=== PATIENT | female | born 1935 | race Caucasian/White ===

== ENCOUNTER → 2021-07-01 11:11 | Outpatient (CLI) | payer OTHER, SELFPAY ==
--- NOTE | 2021-07-01 | DI.MG.S_ITS ---
BILATERAL DIGITAL SCREENING MAMMOGRAM 3D/2D WITH CAD: 07/01/2021 CLINICAL: Routine screening. Family history of breast cancer. Comparison is made to exams dated: 05/11/2020 mammogram, 03/20/2019 mammogram, 03/19/2017 mammogram, and 03/19/2018 mammogram - Merged with [facility]. There are scattered fibroglandular elements in both breasts. Current study was also evaluated with a Computer Aided Detection (CAD) system. There are benign calcifications in both breasts. No significant masses, calcifications, or other findings are seen in either breast. There has been no significant interval change. IMPRESSION: BENIGN There is no mammographic evidence of malignancy. A 1 year screening mammogram is recommended. This exam was interpreted at Station ID: [id number]. NOTE: For mammograms, a report in lay terms will be sent to the patient. Approximately 15% of breast malignancies will not be visualized mammographically. In the management of a palpable breast mass, a negative mammogram must not discourage biopsy of a clinically suspicious lesion. Electronically Signed By: Kash Loomis M.D., jr/lesly:07/04/2021 09:16:46 letter sent: Normal Exam ACR BI-RADS Category 2: Benign Finding(s) 3342F
== END ==
PROVIDERS: PCP Internal Medicine; Referring Provider Internal Medicine; Visit Provider Internal Medicine
DX: Z12.31 Encounter for screening mammogram for malignant neoplasm of breast (principal); Z80.3 Family history of malignant neoplasm of breast
CPT/HCPCS: 77063; 77067

== ENCOUNTER 2022-02-03 10:34 | Emergency (ER) | payer OTHER, SELFPAY ==
[2022-02-03] VITALS (9 sets, daily range): BP systolic 154–198; BP diastolic 67–78; PULSE 63–89; RESP 15–16; TEMP 36.6–36.9; O2SAT 99–100; BMI 28.3
--- NOTE | 2022-02-03 12:02 | DI.RAD.S_ITS ---
PROCEDURE: XR CHEST 1V INDICATIONS: chest pain TECHNIQUE: One view of the chest was acquired. COMPARISON: None. FINDINGS: Surgical changes and devices: None. Lungs and pleura: Trace blunting of the left costophrenic angle may represent a trace pleural effusion or chronic pleural thickening. Lungs are otherwise clear. No pneumothorax. Mediastinum: Mediastinal contours appear normal. Heart size is normal. Mild aortic atherosclerotic calcifications. Bones and chest wall: No suspicious bony lesions. Overlying soft tissues appear unremarkable. IMPRESSION: Trace left pleural effusion or pleural thickening. Lungs are otherwise clear. Approved by: Vinny Her M.D. on 02/03/2022 at 12:51
--- NOTE | 2022-02-03 12:48 | PC.NURSE ---
Addendum entered by Padmini Fernando R.N. 02/03/22 12:50: equal second rigger and + CMS Original Note: pt with h/o TIA on eliquis c/o numbness and tingling in the RUE that happens when she holds her phone too long. states she has been having neck pain which she is unsure is related.
[2022-02-03 12:58] LABS: Add Manual Diff / Slide Review NO; Basophils Absolute Auto 100 /uL (0-100); Basophils Percent Auto 1.3 % (0-2); Eosinophils Absolute Auto 0 /uL (0-450); Eosinophils Percent Auto 0.9 % (2-4); Hematocrit 25.1 % (36-46); Hemoglobin 7.2 g/dL (12.0-16.0); Lymphocytes Absolute Auto 700 /uL (1100-4500); Lymphocytes Percent Auto 14.1 % (25-40); Mean Corpuscular HGB Conc 28.5 % (30-36); Mean Corpuscular Hemoglobin 16.2 PG (26-34); Mean Corpuscular Volume 56.9 fL (80-100); Monocytes Absolute Auto 600 /uL (0-900); Monocytes Percent Auto 11.2 % (3-14); Neutrophils Absolute Auto 3600 /uL (1500-7000); Neutrophils Percent Auto 72.5 % (50-75); Platelet Count 289 X10^3/uL (150-400); Red Blood Cell Count 4.42 X10^6/uL (4.0-5.2); Red Cell Distribution Width 20.7 % (11.6-14.8); White Blood Cell Count 4.9 X10^3/uL (4.5-11.0)
[2022-02-03 13:06] LABS: Alanine Aminotransferase 14 IU/L (<35); Albumin Globulin Ratio 1.4 (1.0-2.8); Alkaline Phosphatase 75 U/L (38-126); Aspartate Aminotransferase 16 IU/L (14-36); BUN Creatinine Ratio 15.9 (6-22); Bilirubin Total 0.4 mg/dL (0.2-1.3); Blood Urea Nitrogen 11 mg/dL (7-17); Calcium 8.7 mg/dL (8.4-10.2); Carbon Dioxide 26 mmol/L (22-32); Chloride 104 mmol/L (98-107); Creatine Kinase 32 U/L (30-135); Estimated Glomerular Filt Rate > 60 mL/min (>60); Globulin 2.9 g/dL (1.7-4.1); Glucose 97 mg/dL (80-110); HEMOLYSIS < 15 (0-50); Lipase 39 U/L (23-300); Potassium 4.1 mmol/L (3.4-5.1); Sodium 138 mmol/L (137-145); Total Protein 6.9 g/dL (6.3-8.2)
[2022-02-03 13:17] LABS: Troponin I < 0.012 ng/mL (0.01-0.034)
[2022-02-03 13:35] LABS: Anisocytosis 3+; Microcytosis 3+
[2022-02-03 13:36] LABS: Hypochromasia 3+; Ovalocytes 1+
--- NOTE | 2022-02-03 13:37 | ED_ITS ---
HPI - Extremity Problem General Chief complaint: Extremity Problem,Nontraumatic Stated complaint: RIGHT ARM NUMBNESS Time Seen by Provider: 02/03/22 12:02 Source: patient Mode of arrival: Ambulatory History of Present Illness HPI Narrative: Patient is 86-year-old female history of hypertension atrial fibrillation on anticoagulation presenting today with ongoing right-sided arm numbness. She says it has been going on for about 1-2 months as it is definitely positional. She says she wakes up in the middle the night she feels like her arm is numb she changes the position it gets better. Throughout the day it is actually okay sometime she still has numbness in her right fingertips. She is not weak or dropping things. When she holds the phone up to her your her arm also goes numb. She denies any headache chest pain shortness of breath fever chills or any other symptoms. She currently is not having any significant numbness. Related Data Previous Rx's Medication Instructions Recorded gabapentin 300 mg capsule 300 mg PO BEDTIME #30 caps 02/03/22 Allergies Allergy/AdvReac Type Severity Reaction Status Date / Time Penicillins Allergy Verified 02/03/22 10:39 Review of Systems Review of Systems Narrative: GENERAL: Denies chills, fatigue, malaise, fever, sweats, travel HEENT: Denies sinus pain, ear pain, sore throat, difficulty swallowing, neck pain RESPIRATORY: Denies dyspnea, cough, wheezing, hemoptysis, sputum. CARDIOVASCULAR: Denies chest pain, palpitations, orthopnea, edema GASTROINTESTINAL: Denies nausea, vomiting, abdominal pain, diarrhea, constipation, melena. : Denies dysuria, frequency, incontinence, hematuria, urinary retention, flank pain. MUSCULOSKELETAL: Denies weakness, joint pain, or bony pain SKIN: No rash, no erythema, no pruritus NEUROLOGIC: See HPI PSYCHIATRIC: No concerning psychosocial issues. 12 point review of systems is negative except for those stated above and HPI Patient History Social History Smoking Status: Unknown if ever smoked Smoking Status: Unknown if ever smoked alcohol intake frequency: holidays/special occasions only Substance Use Type: does not use Exam Initial Vital Signs Initial Vital Signs: Vital Signs Temperature 97.9 F 02/03/22 10:39 Pulse Rate 89 02/03/22 10:39 Respiratory Rate 15 02/03/22 10:39 Blood Pressure 198/77 H 02/03/22 10:39 Pulse Oximetry 100 02/03/22 10:39 Oxygen Delivery Method 02/03/22 10:39 GENERAL: Alert pleasant 86-year-old female and in no acute distress. HEENT: Head atraumatic,EOMI, pupils reactive, face symmetric, moist mucous membranes CARDIOVASCULAR: Regular rate and rhythm without murmurs, rubs or gallops. RESPIRATORY: Breath sounds equal bilaterally, no wheezes rales or rhonchi. ABDOMEN: Soft, nontender. Normoactive bowel sounds all 4 quadrants. No guarding or rebound. EXTREMITIES: Normal range of motion, no clubbing or edema. Neurovascularly intact NEUROLOGICAL: Alert and oriented x4.Normal gait and speech. Cranial nerves II through XII grossly intact. Good fhdybz-my-tupu, good vcfj-wy-oyub, strength equal bilaterally, no dysarthria or aphasia, sensation in tact to soft touch bilaterally, no visual changes, no facial droop SKIN: Warm, dry, no laceration, no petechiae, no rashes or lesions. Scores NIH Stroke Scale Level of Conciousness: Alert, keenly responsive Ask month/age: Answers both questions correctly. Open/close eyes, close hand: Performs both tasks correctly Best gaze horizontal: Normal Visual lowe: No visual loss Facial palsy: Normal symetrical movement Left arm drift: No drift for full 10 sec Right arm drift: No drift for full 10 sec Left leg drift: No drift for full 5 sec Right leg drift: No drift for full 5 sec Limb ataxia: Absent Sensory on face/arms/legs: Normal, no sensory loss Best language: No aphasia, normal Dysarthria: Normal Extinction or inattention: No abnormality Total NIH Stroke scale score: 0 Course Orders Ordered: ED Orders 02/03/22 12:02 XR chest 1V Stat 02/03/22 12:42 Complete Blood Count AUTO DIFF Stat Comprehensive Metabolic Panel Stat Lipase Stat Troponin & CK Cardiac Panel Stat 02/03/22 13:40 EKG-12 Lead Stat Vital Signs Vital signs: Vital Signs - 8 hr 02/03/22 11:55 02/03/22 11:52 02/03/22 11:53 Temperature 98.4 F Pulse Rate Respiratory Rate 16 Blood Pressure 154/67 H 154/67 H Pulse Oximetry 99 100 Oxygen Delivery Method Room Air 02/03/22 11:53 02/03/22 12:42 02/03/22 12:43 Temperature Pulse Rate 88 70 Respiratory Rate Blood Pressure 197/77 H Pulse Oximetry 100 99 Oxygen Delivery Method 02/03/22 12:43 02/03/22 13:00 02/03/22 13:01 Temperature Pulse Rate 71 69 Respiratory Rate Blood Pressure 170/72 H Pulse Oximetry 99 99 Oxygen Delivery Method Room Air 02/03/22 13:01 02/03/22 13:30 02/03/22 13:30 Temperature Pulse Rate 68 63 Respiratory Rate Blood Pressure 179/78 H Pulse Oximetry 99 99 Oxygen Delivery Method Room Air Room Air MDM - Extremity (Nontraumatic) Lab Data Result diagrams: 02/03/22 12:42 02/03/22 12:42 Labs: Lab Results 02/03/22 02/03/22 Range/Units 12:42 12:42 WBC 4.9 (4.5-11.0) X10^3/uL RBC 4.42 (4.0-5.2) X10^6/uL Hgb 7.2 L (12.0-16.0) g/dL Hct 25.1 L (36-46) % MCV 56.9 L (80-100) fL MCH 16.2 L (26-34) PG MCHC 28.5 L (30-36) % RDW 20.7 H (11.6-14.8) % Plt Count 289 (150-400) X10^3/uL Neut % (Auto) 72.5 (50-75) % Lymph % (Auto) 14.1 L (25-40) % [place] % (Auto) 11.2 (3-14) % Eos % (Auto) 0.9 L (2-4) % Baso % (Auto) 1.3 (0-2) % Neut # (Auto) 3600 (6834-0649) /uL Lymph # (Auto) 700 L (0042-0303) /uL [place] # (Auto) 600 (0-900) /uL Eos # (Auto) 0 (0-450) /uL Baso # (Auto) 100 (0-100) /uL RBC Morphology See below Hypochromasia 3+ H Anisocytosis 3+ H Microcytosis 3+ H Ovalocytes 1+ H Sodium 138 (137-145) mmol/L Potassium 4.1 (3.4-5.1) mmol/L Chloride 104 (98-107) mmol/L Carbon Dioxide 26 (22-32) mmol/L BUN 11 (7-17) mg/dL Creatinine 0.69 (0.52-1.04) mg/dL Estimated GFR > 60 (>60) mL/min BUN/Creatinine Ratio 15.9 (6-22) Glucose 97 (80-110) mg/dL Calcium 8.7 (8.4-10.2) mg/dL Total Bilirubin 0.4 (0.2-1.3) mg/dL AST 16 (14-36) IU/L ALT 14 (<35) IU/L Alkaline Phosphatase 75 (38-126) U/L Total Creatine Kinase 32 (30-135) U/L CK-MB (CK-2) TNP CK-MB (CK-2) Rel Index TNP Troponin I < 0.012 (0.01-0.034) ng/mL Total Protein 6.9 (6.3-8.2) g/dL Albumin 4.0 (3.5-5.0) g/dL Globulin 2.9 (1.7-4.1) g/dL Albumin/Globulin Ratio 1.4 (1.0-2.8) Lipase 39 (23-300) U/L Imaging Data Chest x-ray: Radiologist's Impression: XRay Report Signed Patient: Blanca Shields MR#: [id number] : 1935 Acct:[id number] Age/Sex: 86 / F Date of Service: 02/03/22 Loc: ED Accession Number: [id number] ?? Procedure: XR chest 1V Ordering Provider: Priya Mike D.O. PROCEDURE:? XR CHEST 1V ? INDICATIONS:? chest pain ? TECHNIQUE:? One view of the chest was acquired.? ? COMPARISON:? None. ? FINDINGS:? ? Surgical changes and devices:? None.? ? Lungs and pleura:? Trace blunting of the left costophrenic angle may represent a trace pleural effusion or chronic pleural thickening.? Lungs are otherwise clear.? No pneumothorax. ? Mediastinum:? Mediastinal contours appear normal.? Heart size is normal.? Mild aortic atherosclerotic calcifications. ? Bones and chest wall:? No suspicious bony lesions.? Overlying soft tissues appear unremarkable.? ? IMPRESSION:? Trace left pleural effusion or pleural thickening.? Lungs are otherwise clear. ? ? Approved by: Vinny Her M.D. on 02/03/2022 at 12:51 ECG Data Interpretation: Normal sinus rhythm rate 71 FL interval 146 QRS [address] changes no T- wave inversion MDM Narrative Medical decision making narrative: Patient is is 86-year-old female presents with right numbness and tingling off and on for the last 1-2 months. It really does seem to be positional. Seems to be a neuropathy. She has no real neck pain. Her NIH stroke scale is 0 she is not having symptoms now. She has no other symptoms. Discussed with her imaging of her neck she cannot have an MRI because she has metal in her year. At this t fidencio the been in the emergency department for while they like to go I see no need for emergent CT of her cervical spine recommended as an outpatient. Will try a course of gabapentin to see if it helps her sleep and her pain at night. Upon further review patient is quite anemic hemoglobin 7.2 hematocrit 25 point when she has no rectal bleeding she does have some diarrhea. She has suffered from anemia before. She has no dizziness lightheadedness or shortness of breath. I strongly encouraged her to follow up with PCP in blood work rechecked. I have also encouraged her to take iron. I did have to call patient after she was discharged and tell her this information. Discharge Plan Departure Patient Disposition: Home Clinical Impression: Neuropathy, Anemia Instructions: Diabetic Neuropathy Activity Restrictions/Additional Instructions: *You have been diagnosed with neuropathy *What to do: At this time he likely do have a pinched nerve. You require imaging such as a CT with her primary care provider Blood pressure was noted to be slightly elevated today please continue taking yo ur blood pressure medication checking it and you may require blood pressure medication adjusted *Continue to take medications as directed Gabapentin 300 mg at night if it helps for pain *Follow up with your primary care provider in 2-3 days or call [phone] *Return to ER if you should have increased weakness persistent numbness difficulty speaking visual changes worsening headache [or] any new, worsening or concerning symptoms Prescriptions: New gabapentin 300 mg capsule 300 mg PO BEDTIME Qty: 30 0RF Referrals: Susy Schulte MD [Primary Care Provider] - Visit Report Forms: Patient Portal/API
== END 2022-02-03 14:11 | disposition home or self-care (01) ==
PROVIDERS: Emergency Provider Emergency Medicine; PCP Internal Medicine
DX: D64.9 Anemia, unspecified (principal); R07.9 Chest pain, unspecified; G62.9 Polyneuropathy, unspecified; Z79.01 Long term (current) use of anticoagulants
CPT/HCPCS: 36415; 71045; 80053; 82550; 83690; 84484; 85025; 93005; 99284